=== PATIENT | male | born 2000 | race Two or more races ===

== ENCOUNTER 2024-01-24 16:29 | Emergency (ER) | payer MEDICAID ==
[~2024-01-24] VITALS: Ht 182.9 cm; Wt 111.4 kg
[2024-01-24 16:42] VITALS: O2SAT 97
[2024-01-24] MEDS ORDERED: TERB30CR8 TP (19:52)
[2024-01-24 20:18] VITALS: BP 116/76; PULSE 74; RESP 12; TEMP 98.4
== END 2024-01-24 20:28 | disposition home or self-care (01) ==
LOC: ER 16:29
DX: B35.4 Tinea corporis (principal)
CPT/HCPCS: 99282

== ENCOUNTER 2025-07-16 01:35 | Emergency (ER) | payer MEDICAID, OTHER ==
[~2025-07-16] VITALS: Ht 182.9 cm; Wt 111.0 kg
[~2025-07-16 01:35] MED LIST: TERB30CR8 TP
[2025-07-16 01:38] VITALS: O2SAT 100
[2025-07-16] MEDS: ACETAMINOPHEN 500MG TABLET PO ONE (03:12)
[2025-07-16] MEDS ORDERED: NAPR-1176 MT (03:47)
[2025-07-16 04:12] VITALS: BP 132/78; PULSE 95; RESP 16; TEMP 37; O2SAT 100
== END 2025-07-16 04:12 | disposition home or self-care (01) ==
LOC: ER 01:53
DX: S00.212A Abrasion of left eyelid and periocular area, initial encounter (principal); X58.XXXA Exposure to other specified factors, initial encounter; Y93.89 Activity, other specified; Y92.410 Unspecified street and highway as the place of occurrence of the external cause; Y99.8 Other external cause status
CPT/HCPCS: 70486; 99284